=== PATIENT | female | born 1990 | race Caucasian/White ===

== ENCOUNTER 2019-01-12 21:39 | Outpatient (CLI) | payer MEDICAID ==
[2019-01-12 22:32] LABS: ADD UMIC YES; UR ASCORBIC ACID NEGATIVE (NEGATIVE); UR BACTERIA FEW /HPF (NONE SEEN); UR BILIRUBIN (Dip) NEGATIVE (NEGATIVE); UR BLOOD (Dip) NEGATIVE (NEGATIVE); UR CLARITY CLEAR (CLEAR); UR COLOR YELLOW (YELLOW); UR GLUCOSE (Dip) 1+ mg/dL (NEGATIVE); UR KETONES (Dip) NEGATIVE (NEGATIVE); UR LEUKOCYTE ESTERASE (Dip) 1+ Leu/ul (NEGATIVE); UR NITRITE (Dip) NEGATIVE (NEGATIVE); UR RBC 1 /HPF (0-5); UR SPECIFIC GRAVITY (Dip) 1.024 (1.003-1.030); UR SQUAMOUS EPITHELIAL CELL FEW /HPF (FEW); UR TOTAL PROTEIN (Dip) NEGATIVE (NEGATIVE); UR UROBILINOGEN (Dip) NEGATIVE (NEGATIVE); UR WBC 4 /HPF (0-5)
[2019-01-12 22:33] LABS: UR MUCUS FEW /HPF (NONE SEEN)
[2019-01-12] MEDS: TERBUTALINE 1 MG/ML INJ SC (23:16)
[2019-01-12] MEDS: LACTATED RINGER'S 1,000 ML IV ×2 (23:17)
[2019-01-12 23:22] LABS: ADD MAN DIFF? NO
[2019-01-12 23:25] LABS: BASOPHILS % 0.3 % (0.0-2.0); EOSINOPHILS # 0.1 10^3/ul (0.0-0.5); EOSINOPHILS % 0.7 % (0.0-7.0); HEMATOCRIT 34.4 % (37.0-47.0); HEMOGLOBIN 11.6 g/dl (12.0-16.0); LYMPHOCYTES # 2.2 10^3/ul (0.8-2.9); LYMPHOCYTES % 23.7 % (15.0-51.0); MEAN CORPUSCULAR HEMOGLOBIN 29.5 pg (29.0-33.0); MEAN CORPUSCULAR HGB CONC 33.7 g/dl (32.0-37.0); MEAN CORPUSCULAR VOLUME 87.5 fl (82.0-101.0); MEAN PLATELET VOLUME 10.1 fl (7.4-10.4); MONOCYTE # 0.7 10^3/ul (0.3-0.9); MONOCYTES % 7.8 % (0.0-11.0); NEUTROPHIL # 6.1 10^3/ul (1.6-7.5); NEUTROPHILS % 66.8 % (39.0-77.0); PLATELET COUNT 271 10^3/UL (140-415); RED BLOOD COUNT 3.93 10^6/ul (4.20-5.40); RED CELL DISTRIBUTION WIDTH 12.4 % (11.5-14.5)
[2019-01-12 23:25] LABS: WHITE BLOOD COUNT 9.1 10^3/ul (4.8-10.8)
[2019-01-13] MEDS: LACTATED RINGER'S 1,000 ML IV
== END 2019-01-13 01:15 | disposition home or self-care (01) ==
LOC: OBT 21:39 → L-D 21:40
DX: O60.03 Preterm labor without delivery, third trimester (principal); Z3A.31 31 weeks gestation of pregnancy
CPT/HCPCS: 36415; 76817; 76818; 81001; 85025; 87086; 96360; 96361; 96372

== ENCOUNTER 2019-02-02 23:13 | Outpatient (CLI) | payer MEDICAID ==
[2019-02-03 02:39] LABS: ADD UMIC NO; UR ASCORBIC ACID NEGATIVE (NEGATIVE); UR BACTERIA FEW /HPF (NONE SEEN); UR BILIRUBIN (Dip) NEGATIVE (NEGATIVE); UR BLOOD (Dip) NEGATIVE (NEGATIVE); UR CLARITY SLIGHTLY CLOUDY (CLEAR); UR COLOR YELLOW (YELLOW); UR GLUCOSE (Dip) NEGATIVE (NEGATIVE); UR KETONES (Dip) 2+ mg/dL (NEGATIVE); UR LEUKOCYTE ESTERASE (Dip) NEGATIVE Leu/ul (NEGATIVE); UR MUCUS MODERATE /HPF (NONE SEEN); UR NITRITE (Dip) NEGATIVE (NEGATIVE); UR RBC 2 /HPF (0-5); UR SPECIFIC GRAVITY (Dip) 1.019 (1.003-1.030); UR SQUAMOUS EPITHELIAL CELL FEW /HPF (FEW); UR TOTAL PROTEIN (Dip) NEGATIVE (NEGATIVE); UR UROBILINOGEN (Dip) 1+ mg/dL (NEGATIVE); UR WBC 5 /HPF (0-5)
[2019-02-03 03:21] LABS: ADD MAN DIFF? NO
[2019-02-03 03:50] LABS: BASOPHILS % 0.2 % (0.0-2.0); EOSINOPHILS # 0.1 10^3/ul (0.0-0.5); EOSINOPHILS % 0.6 % (0.0-7.0); HEMATOCRIT 33.2 % (37.0-47.0); LYMPHOCYTES # 2.3 10^3/ul (0.8-2.9); LYMPHOCYTES % 22.6 % (15.0-51.0); MEAN CORPUSCULAR HEMOGLOBIN 28.7 pg (29.0-33.0); MEAN CORPUSCULAR HGB CONC 33.1 g/dl (32.0-37.0); MEAN CORPUSCULAR VOLUME 86.7 fl (82.0-101.0); MEAN PLATELET VOLUME 10.3 fl (7.4-10.4); MONOCYTE # 0.8 10^3/ul (0.3-0.9); MONOCYTES % 7.7 % (0.0-11.0); NEUTROPHIL # 6.8 10^3/ul (1.6-7.5); NEUTROPHILS % 67.8 % (39.0-77.0); PLATELET COUNT 281 10^3/UL (140-415); RED BLOOD COUNT 3.83 10^6/ul (4.20-5.40); RED CELL DISTRIBUTION WIDTH 12.6 % (11.5-14.5)
[2019-02-03] MEDS: TERBUTALINE 1 MG/ML INJ SC (04:36)
== END 2019-02-03 06:12 | disposition home or self-care (01) ==
LOC: OBT 23:13 → L-D 02-03 00:35 → OBT 02-03 06:12
DX: O26.893 Other specified pregnancy related conditions, third trimester (principal); Z3A.34 34 weeks gestation of pregnancy; R10.9 Unspecified abdominal pain; R35.0 Frequency of micturition
CPT/HCPCS: 76815; 76818; 81001; 81003; 85025; 87086; 96372

== ENCOUNTER 2019-02-28 08:56 | Inpatient (IN) | payer MEDICAID ==
[~2019-02-28 08:56] MED LIST: EPHEDrine SULFATE 50 MG/5 ML SYG; OXYTOCIN 30 UNITS/LR 500 ML BAG IV
[2019-02-28 09:38] LABS: ADD UMIC YES; UR ASCORBIC ACID NEGATIVE (NEGATIVE); UR BACTERIA FEW /HPF (NONE SEEN); UR BILIRUBIN (Dip) NEGATIVE (NEGATIVE); UR BLOOD (Dip) 1+ mg/dL (NEGATIVE); UR CLARITY CLOUDY (CLEAR); UR COLOR AMBER (YELLOW); UR GLUCOSE (Dip) NEGATIVE (NEGATIVE); UR KETONES (Dip) TRACE mg/dL (NEGATIVE); UR LEUKOCYTE ESTERASE (Dip) 2+ Leu/ul (NEGATIVE); UR MUCUS MODERATE /HPF (NONE SEEN); UR NITRITE (Dip) NEGATIVE (NEGATIVE); UR RBC 19 /HPF (0-5); UR SPECIFIC GRAVITY (Dip) 1.028 (1.003-1.030); UR SQUAMOUS EPITHELIAL CELL MODERATE /HPF (FEW); UR TOTAL PROTEIN (Dip) 1+ mg/dl (NEGATIVE); UR UROBILINOGEN (Dip) 2+ mg/dL (NEGATIVE); UR WBC 47 /HPF (0-5)
[2019-02-28] MEDS: LACTATED RINGER'S 1,000 ML IV ×2 (09:59→21:40)
[2019-02-28] MEDS: CEFTRIAXONE 1 GM/50 ML (PMX) 50 ML IVPB (10:17)
[2019-02-28] MEDS ORDERED: MISOPROSTOL 200 MCG TAB PR ×2 (12:00→20:00)
[2019-02-28] MEDS ORDERED: CARBOPROST 250 MCG INJ IM ×2 (12:00→20:00)
[2019-02-28] MEDS ORDERED: CEFAZOLIN 2 GM/50 ML (PMX) 50 ML IVPB (12:00)
[2019-02-28] MEDS ORDERED: METHYLERGONOVINE 0.2 MG INJ IM ×2 (12:00→20:00)
[2019-02-28 12:17] LABS: ADD MAN DIFF? NO
[2019-02-28 12:25] LABS: BASOPHILS % 0.3 % (0.0-2.0); EOSINOPHILS % 0.4 % (0.0-7.0); HEMOGLOBIN 11.6 g/dl (12.0-16.0); LYMPHOCYTES # 1.7 10^3/ul (0.8-2.9); LYMPHOCYTES % 21.2 % (15.0-51.0); MEAN CORPUSCULAR HEMOGLOBIN 28.1 pg (29.0-33.0); MEAN CORPUSCULAR HGB CONC 33.1 g/dl (32.0-37.0); MEAN CORPUSCULAR VOLUME 84.7 fl (82.0-101.0); MEAN PLATELET VOLUME 10.7 fl (7.4-10.4); MONOCYTE # 0.7 10^3/ul (0.3-0.9); MONOCYTES % 8.5 % (0.0-11.0); NEUTROPHIL # 5.5 10^3/ul (1.6-7.5); NEUTROPHILS % 69.2 % (39.0-77.0); PLATELET COUNT 282 10^3/UL (140-415); RED BLOOD COUNT 4.13 10^6/ul (4.20-5.40); RED CELL DISTRIBUTION WIDTH 12.6 % (11.5-14.5)
[2019-02-28 12:25] LABS: WHITE BLOOD COUNT 7.9 10^3/ul (4.8-10.8)
[2019-02-28 12:46] LABS: INR 0.86; PROTIME 11.8 Sec (11.9-14.9); PT RATIO 0.9
[2019-02-28 12:47] LABS: PARTIAL THROMBOPLASTIN TIME 29.1 Sec (23.0-35.0)
[2019-02-28 13:18] LABS: HEPATITIS B SURFACE ANTIGEN NEGATIVE (NEGATIVE)
[2019-02-28] MEDS: ONDANSETRON 4 MG INJ IV ×2 (13:54→18:45)
[2019-02-28] MEDS: CITRIC ACID/NA CITRATE 30 ML CUP PO (13:54)
[2019-02-28] MEDS ORDERED: OXYTOCIN 10 UNIT INJ (14:12)
[2019-02-28] MEDS ORDERED: morphine SULFATE/PF (10 MG/10 ML) INJ (14:12)
[2019-02-28] MEDS ORDERED: DEXAMETHASONE 4 MG/ML 1 ML INJ (14:38)
[2019-02-28] MEDS ORDERED: METOCLOPRAMIDE 10 MG INJ (14:38)
[2019-02-28] MEDS ORDERED: KETOROLAC 30 MG INJ (14:38)
[2019-02-28 14:39] LABS: RAPID PLASMA REAGIN NONREACTIVE (NR)
[2019-02-28] MEDS ORDERED: HYDROCODONE/APAP (5/325) TAB PO ×2 (15:00→20:00)
[2019-02-28] MEDS ORDERED: NALOXONE (0.4 MG/ML) INJ IV (15:00)
[2019-02-28] MEDS ORDERED: HYDROmorphONE 0.5 MG/0.5 ML SYG IV ×2 (15:00)
[2019-02-28] MEDS ORDERED: NALBUPHINE HCL (10 MG/1 ML) INJ IV (15:00)
[2019-02-28] MEDS ORDERED: morphine 2 MG INJ IV ×2 (15:00)
[2019-02-28] MEDS ORDERED: ACETAMINOPHEN 500 MG TAB PO (15:00)
[2019-02-28] MEDS ORDERED: DIPHENHYDRAMINE 50 MG INJ IV (15:00)
[2019-02-28] MEDS: KETOROLAC 30 MG INJ IV (15:18)
[2019-02-28] MEDS: OXYTOCIN 30 UNITS/LR 500 ML IV (15:25)
[2019-02-28] MEDS: AZITHROMYCIN 500MG/NS (PMX) 250 ML IVPB (15:54)
[2019-02-28] MEDS ORDERED: OXYTOCIN 30 UNITS/LR 500 ML IV (20:00)
[2019-02-28] MEDS ORDERED: NA PHOSPHATE/BIPHOS 133 ML ENEMA PR (20:00)
[2019-02-28] MEDS: SENNA/DOCUSATE NA (8.6MG/50MG) TAB PO (21:39)
[2019-02-28] MEDS: CEFAZOLIN 2 GM/50 ML (PMX) 50 ML IVPB (21:40)
[2019-02-28] MEDS: CLINDAMYCIN 300 MG CAP PO (23:55)
[2019-03-01] MEDS: CLINDAMYCIN 300 MG CAP PO ×3 (05:50→17:56)
[2019-03-01] MEDS: LACTATED RINGER'S 1,000 ML IV ×2 (05:50→13:30)
[2019-03-01] MEDS: CEFAZOLIN 2 GM/50 ML (PMX) 50 ML IVPB ×2 (05:50→13:23)
[2019-03-01 06:40] LABS: ADD MAN DIFF? NO
[2019-03-01 06:45] LABS: WHITE BLOOD COUNT 10.4 10^3/ul (4.8-10.8)
[2019-03-01 06:45] LABS: BASOPHILS % 0.1 % (0.0-2.0); EOSINOPHILS % 0.1 % (0.0-7.0); HEMATOCRIT 31.1 % (37.0-47.0); HEMOGLOBIN 10.3 g/dl (12.0-16.0); LYMPHOCYTES # 1.4 10^3/ul (0.8-2.9); LYMPHOCYTES % 13.7 % (15.0-51.0); MEAN CORPUSCULAR HGB CONC 33.1 g/dl (32.0-37.0); MEAN CORPUSCULAR VOLUME 84.5 fl (82.0-101.0); MEAN PLATELET VOLUME 10.4 fl (7.4-10.4); MONOCYTE # 0.9 10^3/ul (0.3-0.9); MONOCYTES % 8.3 % (0.0-11.0); NEUTROPHILS % 77.4 % (39.0-77.0); PLATELET COUNT 287 10^3/UL (140-415); RED BLOOD COUNT 3.68 10^6/ul (4.20-5.40); RED CELL DISTRIBUTION WIDTH 12.5 % (11.5-14.5)
[2019-03-01] MEDS: KETOROLAC 30 MG INJ IV (10:45)
[2019-03-01] MEDS: SENNA/DOCUSATE NA (8.6MG/50MG) TAB PO ×2 (10:46→21:36)
[2019-03-01] MEDS: BISACODYL 10 MG SUPP PR (10:55)
[2019-03-01] MEDS: LANOLIN HPA 1 PKT TOP (12:04)
[2019-03-01] MEDS: OXYCODONE/ACETAMINOPHEN (5/325) TAB PO (17:56)
[2019-03-01] MEDS: IBUPROFEN 800 MG TAB PO (21:36)
[2019-03-02] MEDS: CLINDAMYCIN 300 MG CAP PO ×5 (00:10→23:21)
[2019-03-02] MEDS: IBUPROFEN 800 MG TAB PO ×3 (05:42→21:31)
[2019-03-02] MEDS: SENNA/DOCUSATE NA (8.6MG/50MG) TAB PO ×2 (09:00→21:31)
[2019-03-02] MEDS ORDERED: ACETAMINOPHEN 325 MG TAB PO (17:30)
[2019-03-03] MEDS: CLINDAMYCIN 300 MG CAP PO ×2 (05:44→12:32)
[2019-03-03] MEDS: IBUPROFEN 800 MG TAB PO ×2 (05:44→14:19)
[2019-03-03] MEDS: SENNA/DOCUSATE NA (8.6MG/50MG) TAB PO (09:01)
[2019-03-03] MEDS: MEASLES,MUMPS,RUBELLA VACCINE INJ SC* (09:02)
[2019-03-03] MEDS: DIPHTH/TET/ACEL PERTUSS (ADULT) 0.5 ML VIAL IM* (09:02)
== END 2019-03-03 14:50 | disposition home or self-care (01) | DRG 785 ==
LOC: OBT 08:56 → L-D 08:58 → OBT 11:35 → L-D 11:35 → PP1 17:57
PROC: 10D00Z1 Extraction of Products of Conception, Low, Open Approach (ICD-10-PCS; principal; 2019-02-28 14:15)
PROC: 0UB70ZZ Excision of Bilateral Fallopian Tubes, Open Approach (ICD-10-PCS; 2019-02-28 14:15)
DX: O34.211 Maternal care for low transverse scar from previous cesarean delivery (principal); Z3A.37 37 weeks gestation of pregnancy; Z37.0 Single live birth; Z30.2 Encounter for sterilization
CPT/HCPCS: 81001; 85025; 85610; 85730; 86592; 86850; 86900; 86901; 87086; 87340; 88302; 99464